=== PATIENT | female | born 1975 | race Two or more races ===

== ENCOUNTER 2024-02-22 13:29 | Outpatient (AMB) | payer MEDICAID, SELFPAY ==
[2024-02-22 13:41] VITALS: BP 126/81; PULSE 82; RESP 18; TEMP 36.8; O2SAT 98; BMI 25.8
--- NOTE | 2024-02-22 13:41 | PD.ORTHCLVIS ---
Vital signs 02/22/24 13:41 Height 1.65 m Height Method Measured Weight 70.364 kg Weight Measurement Method Standing Scale BMI 25.8 BP 126/81 Blood Pressure Source Automatic Cuff Blood Pressure Location Left Upper Arm Position Sitting Respiration 18 Pulse 82 Pulse Source Monitor Temp 98.2 F Temp Source Temporal Artery Scan Pulse Oximetry (%) 98 Oxygen Delivery Method Room Air Med/Allergies Allergies & Medications Allergies No Known Allergies Allergy (Verified 02/22/24 13:42) Medication Reconciliation hydrochlorothiazide 12.5 mg tablet 12.5 mg PO QAM 11/29/20 [History Confirmed 02/22/24] lisinopril 10 mg tablet 10 mg PO QDAY 11/29/20 [History Confirmed 02/22/24] metformin 1,000 mg tablet 1,000 mg PO BID 11/29/20 [History Confirmed 02/22/24] semaglutide 1 mg/dose (2 mg/1.5 mL) subcutaneous pen injector (Ozempic) 1 mg subcut QWEEK 11/09/22 [History Confirmed 02/22/24] meloxicam 7.5 mg tablet 7.5 mg PO QDAY #45 tabs 07/06/23 [Rx Confirmed 02/22/24] Exam Exam Patient is in no acute distress and is cooperative with the examination today. Patient has a normal mood and affect. Breathing is nonlabored. In no respiratory distress. Bilateral extremities were evaluated and demonstrates sensation intact to light touch. Palpable pedal pulses are present. No significant edema is present. Right knee incisions clean dry and intact. There is greater than 10 mm of varus valgus laxity in the medial lateral plane. The knee feels relatively stable to flexion and AP force. Range of motion 0 to 100 degrees Left knee is tender to palpation medially and laterally. Knee feels stable varus valgus stress with AP translation. Range of motion 0 to 10 degrees I was able to review nonweightbearing x-rays from last month. This demonstrates medial joint space narrowing. These are nonweightbearing films Weightbearing films demonstrate mild arthritis of the left knee. There is an asymmetry on the right knee joint space. Assessment and Plan Problem List (1) Status post total right knee replacement: Status: Acute Plan: Patient is a pleasant 48-year-old female with Unstable right total knee replacement. Is unstable in both the varus valgus as well as AP translation. We will discuss revision knee arthroplasty. We can possibly try to upsize the poly to a medial congruent poly but there is a good chance that we will rneed to revise both components. We discussed the risk of benefits of surgery including infection, mechanical loosening, damage to nerves and vessels, fracture, and Medical complications from surgery in general. We will plan for revision total knee replacement with a upsize liner as PNA but the backup plan would be to revise both components (2) Arthritis of left knee: Status: Acute Office Procedures GNS Level of Care Nursing/Assessment Patient Status: Established Patient Nursing Assessment/Reassesment: Medication Reconciliation, Update PMH in EMR and Vital Signs Coordination of Care: Complex Care and Chronic Disease 1-5, Consent,records obtained, informed consent, Education Simp Pt/Fam, Lab and Imaging orders and Staff clarify orders Established Patient Charge Established Patient Point Assignment: 100 Established Patient Point Charge: EP Level 3 (80-115) MA Intake Visit Data Collection New Patient or Established: Established Patient (seen at [facility] within 3 years) Seen by Clinical Staff ONLY (RN/MA): No Director Of Mobile Marketing Required: Yes PCP or OBGYN visit in last 3 months: Yes Hx Now: No Do You Feel Safe at Home: Yes Authorities Contacted: N/A Questionairres Past Medical History Past Medical History Have you ever been diagnosed with any of the following: Neurological Problems Seizures: No Cardiology Problems Congestive Heart Failure: No Edema: No Cellulitis: No Hypertension: Yes Varicose Veins: No Respiratory Problems Chronic Obstructive Pulmonary Disease (COPD): No Tuberculosis: No Sleep Apnea: No Smoking: No Smoking Exposure: No Stomache/Intestinal Problems Hepatitis: No Obesity: Yes Genital/Urinary Problems Renal Disease: No Reproductive Problems Previous Pregnancies: Yes (X4) Musculoskeletal Problems Arthritis: No Endocrine Problems Diabetes Mellitus Type 1: No Diabetes Mellitus Type 2: Yes Other Problems Hospitalization: Yes (surgery) Shingles: No Falls: No Blood Transfusions: No Blood Transfusion Reaction: No Anesthesia Reactions: No Chemotherapy: No Radiation Therapy: No MRSA: No Chicken Pox: Yes Measles: No Mumps: Yes Cancer: No Surgical History Pacemaker: No Subjective Immunization / Flu Flu Vaccine in the Last 12 Months: No Flu Vaccine Exclusion Criteria: Refused by Patient History of Present Illness Chief complaint: right knee pain Abril is a pleasant 48-year-old female who has significant bilateral knee pain. She had a history of a right total knee replacement 2 years ago. She still has persistent pain since then. She reports that her knee still feels like it is unstable and gives out on the right. She also has significant left knee pain has been ongoing for 2 years. She Has not had any injections but she has triedf diclofenac. She reports the pain is affecting her quality life and happiness. She has significant instability On the right knee and it is affecting her quality life and happiness Pain Pain level (0-10): 0 Review of Systems Review of Systems: All systems negative unless otherwise noted in HPI.
== END 2024-02-22 14:08 | disposition home or self-care (01) ==
LOC: HODSRG 13:29
PROVIDERS: PCP Physician Assistant; Referring Provider Physician Assistant; Supervising Provider Orthopaedic Surgery Adult Reconstructive Orthopaedic Surgery; Visit Provider Orthopaedic Surgery Adult Reconstructive Orthopaedic Surgery
DX: M17.12 Unilateral primary osteoarthritis, left knee (principal); Z96.651 Presence of right artificial knee joint; I10 Essential (primary) hypertension
CPT/HCPCS: 99213; G0463

== ENCOUNTER 2024-03-01 08:20 | Day surgery (SDC) | payer MEDICAID, SELFPAY ==
[2024-02-28 09:45] VITALS: BMI 25.7
--- NOTE | 2024-02-28 09:57 | EKG_ITS ---
[facility] Test Date: 2024-02-28 Pat Name: CELESTINO KRAUS Department: Room: - Gender: Female Belt Changer: RTSJC : 1975 Requested By: Livan Leavitt Order Number: [id number] Reading MD: Livan Leavitt Measurements Intervals Sidney Rate: 78 P: 35 MI: 158 QRS: 57 QRSD: 78 T: 13 QT: 370 QTc: 422 Interpretive Statements SINUS RHYTHM POSSIBLE LEFT ATRIAL ENLARGEMENT NONSPECIFIC T-WAVE ABNORMALITY Compared to ECG 11/09/2022 09:54:07 T-wave abnormality now present /store/S0/[id number]/[id number].pdf
[2024-02-28 11:31] LABS: Basophils # (Auto) 0.1 Thou/mm3 (0.0-0.2); Basophils % (Auto) 1 % (0-2.5); Eosinophils # (Auto) 0.4 Thou/mm3 (0.0-0.5); Eosinophils % (Auto) 5 % (0-10); Hematocrit 38.2 % (36.0-46.0); Hemoglobin 12.9 g/dL (12.0-16.0); Immature Granulocytes % (Auto) 0 % (0-0); Immature Granulocytes Auto 0.02 Thou/mm3 (0.00-0.00); Lymphocytes # (Auto) 3.5 Thou/mm3 (1.0-4.8); Lymphocytes % (Auto) 43 % (10-50); Mean Corpuscular HGB Conc 33.8 g/dl (31.0-37.0); Mean Corpuscular Hemoglobin 29.2 pg (25.0-35.0); Mean Corpuscular Volume 86 fL (80-100); Monocytes # (Auto) 0.6 Thou/mm3 (0.0-0.8); Monocytes % (Auto) 8 % (0-12); Neutrophils # (Auto) 3.5 Thou/mm3 (1.8-7.7); Neutrophils % (Auto) 43 % (37-80); Nucleated Red Blood Cell % 0 /100 WBC (0); Platelet Count 392 Thou/mm3 (140-440); RDW Standard Deviation 41.6 fL (36.4-46.3); Red Blood Count 4.42 Miln/mm3 (4.00-5.20); White Blood Count 8.1 Thou/mm3 (3.6-11.0)
[2024-02-28 11:45] LABS: INR 0.9 (0.9-1.3); Partial Thromboplastin Time 28.1 Seconds (22.0-36.0); Prothrombin Time 10.4 Seconds (9.0-12.2)
[2024-02-28 11:47] LABS: HCG Qualitative,Urine Negative
[2024-02-28 11:53] LABS: Alanine Aminotransferase 16 U/L (10-49); Albumin, Serum 4.9 gm/dL (3.5-5.0); Albumin/Globulin Ratio 1.9 (1.2-2.2); Alkaline Phosphatase 85 U/L (46-116); Anion Gap 11 (7-16); Aspartate Amino Transferase 18 U/L (0-34); BUN/Creatinine Ratio 27 Ratio (12-20); Bilirubin,Total 0.4 mg/dL (0.3-1.2); Blood Urea Nitrogen 19 mg/dL (9-23); Calcium 9.6 mg/dL (8.3-10.6); Calcium (Corrected) 9.6 mg/dL (8.5-10.1); Carbon Dioxide 25.5 mMol/L (20.0-31.0); Chloride 102 mMol/L (98-107); Creatinine (Component) 0.7 mg/dL (0.6-1.3); Estimated Creatinine Clearance 96.5 mL/min (>60); Globulin 2.6 gm/dL (2.3-3.5); Glucose 80 mg/dL (74-106); Osmolality,Calculated 276 (275-295); Potassium 3.8 mMol/L (3.4-5.1); Sodium 138 mMol/L (136-145); Total Protein 7.5 gm/dL (5.7-8.2); eGFR > 60 See Note
[2024-03-01] VITALS (19 sets, daily range): BP systolic 91–147; BP diastolic 52–96; PULSE 84–99; RESP 14–20; TEMP 36.2–36.7; O2SAT 97–100; BMI 25.5
[2024-03-01] MEDS: PREGABALIN 75 MG CAPSULE PO (09:30)
[2024-03-01] MEDS: ACETAMINOPHEN 325 MG TABLET 650 MG PO (09:30)
[2024-03-01] MEDS: MELOXICAM 7.5 MG TABLET PO (09:30)
[2024-03-01] MEDS: RINGERS LACTATED 1000 ML 1,000 ML 20 ML IV (09:33)
--- NOTE | 2024-03-01 10:31 | CHAP ---
Prayed with patient before her procedure.
--- NOTE | 2024-03-01 14:32 | SUR.PHASEI ---
1432: Pt. AAOx4, vitals stable, breathing unlabored, no complaint of pain or nausea, dressing to right knee CDI, no active bleed noted, pt. able to wiggle bilateral feet, cap refill to bilateral feet less than 3 seconds, bilateral dorsalis pedis pulses strong and regular, report received from MD Leavitt and Cabrera MAN.
--- NOTE | 2024-03-01 15:00 | XR_ITS ---
Examination: Right knee 2 views Technique one AP lateral right knee 2 views Exam date and time: March 01, 2024 1517 hours INDICATIONS: Postop knee arthroplasty today. FINDINGS: Moderate osteopenia. Total right knee arthroplasty. Satisfactory alignment No fracture IMPRESSION: Total right knee arthroplasty with satisfactory alignment
--- NOTE | 2024-03-01 16:32 | SUR.PHASEII ---
1632: Pt. AAOx4, vitals stable, breathing unlabored, no complaint of pain or nausea, dressing to right knee CDI, no active bleed noted, pt. walked with PT, tolerated well, pt. tolerated sips of soda and juice well, gave discharge instructions to the pt. and her ride using obgyn hospitalist physician Sarah, both verbalized understanding and had no further quesitons. All of pt. belongings place in a bag and is given to pt. daughter. Pt. meets discharge criteria, waiting for pt. to void and then she can go home.
--- NOTE | 2024-03-01 16:37 | SUR.PHASEII ---
Addendum entered by Janett Luna RN 03/01/24 17:34: patients daughter present with patient Original Note: 1127 Report received from Ailyn MAN, patient is awake and alert, awaiting discharge, disconnected from the monitor, IV discontinued, vital signs stable, denies pain, dressing intact; no bleeding noted, unable to urinate, patient had spinal anesthesia and must urinate prior to discharge, will assume care over patient
--- NOTE | 2024-03-01 16:38 | SUR.PHASEII ---
report given to Janett Acevedo RN to resume care, pt. currently in restroom trying to void.
--- NOTE | 2024-03-01 17:29 | SUR.PHASEII ---
patient ate 50% of dinner tray, drinking fluids continues to be unable to urinate
--- NOTE | 2024-03-01 18:09 | SUR.PHASEII ---
patient attempted to void in the restroom, unable to, will continue to have patient drink fluids
--- NOTE | 2024-03-01 19:00 | SUR.PHASEII ---
patient eating a pudding
--- NOTE | 2024-03-01 19:15 | SUR.PHASEI ---
1910 Dr. Ríos notified regarding patient still in recovery unable to void, no bladder pain at the moment however patient shared she having knee pain, telephone orders received from Tylenol 1000mg oral and Oxycodone IR 5mg oral, will place orders in EMR and administer per MD order
[2024-03-01] MEDS: ACETAMINOPHEN 500 MG TABLET 1000 MG PO (19:20)
[2024-03-01] MEDS: oxyCODONE HCL 5 MG IR TAB PO (19:21)
--- NOTE | 2024-03-01 19:30 | SUR.PHASEII ---
1930 patient voided in the restroom will proceed with discharge
--- NOTE | 2024-03-01 19:37 | SUR.PHASEII ---
1937 Patient meets discharge criteria from recovery, awake and alert, breathing unlabored, vital signs stable, patient given pain pill prior to discharge, denies nausea, information about medication given to patient and her daughter, discharge instructions given by previous nurse caring for patient, patient given all her belongings prior to discharge, transported via wheelchair and left in a private vehicle.
--- NOTE | 2024-03-07 13:31 | ESPR_ITS ---
Documentation for date of: 03/07/24 POST ANESTHESIA NOTE: Patient had spinal anesthesia and MAC for R knee surgery on 03/01/24. I just called and spoke with her on the phone via steam and gas turbines assembler and she denied any problems from anesthesia. Livan Leavitt MD Anesthesia Progress Note Progress Note Most recent Vital Signs: Last Vital Signs Temp 98.0 F 03/01/24 19:20 Pulse 93 03/01/24 19:15 Resp 18 03/01/24 19:15 BP 134/87 H 03/01/24 19:15 Pulse Ox 98 03/01/24 19:15
--- NOTE | 2024-03-14 14:22 | ESOP_ITS ---
Date of Procedure 03/01/24 Pre Op Diagnosis right knee instability Post Op Diagnosis Right knee instability Procedure Upsizing liner for stability Findings AP and medial lateral instability Procedure Description Indications Patient is a 48-year-old female with a total knee replacement 1 year ago. It was complicated by instability and she has been unhappy with how it gives out. She has been having pain to the fact she does not trust her knee. We thus discussed revision knee replacement is reasonable option. Surgery in detail The patient was brought to the operating room. A surgical timeout was performed to verify that the correct side was being operated on. The prior incision was used. The prior incision was quite large so we will use part of the incision. The knee was exposed and we sent samples for culture. It was clear that there was gross instability in the knee in the Medial lateral plane And AP plane. We remove the existing Rushing and trialed for different trials. We tried upsizing to a medial congruent poly and we found that the knee Was both balanced in flexion and extension in both AP and medial lateral planes. We then irrigated the knee and inserted the final medial compartment poly. The incision was then closed in a layered fashion. The usual sterile dressing was applied Anesthesia GETA Implants Marcelina persona medial congruent poly Pathology / specimen None Pathology comment: None Estimated Blood Loss 50 Condition Stable Disposition same day Surgeon Sourav Ríos MD Surgical Staff Operation Date: 03/01/24 13:00 Case Staff Anesthesiologist: Livan Leavitt RNnarrow fabric loom fixer: Holli Sidhu
== END 2024-03-01 19:37 | disposition home or self-care (01) ==
PROVIDERS: Anesthesiology; PCP Physician Assistant; Referring Provider Orthopaedic Surgery Adult Reconstructive Orthopaedic Surgery; Visit Provider Orthopaedic Surgery Adult Reconstructive Orthopaedic Surgery
PROC: (CPT 27487; principal; 2024-03-01 12:45)
DX: M25.361 Other instability, right knee (principal); M23.51 Chronic instability of knee, right knee; Z01.810 Encounter for preprocedural cardiovascular examination; E11.9 Type 2 diabetes mellitus without complications; I10 Essential (primary) hypertension
CPT/HCPCS: 27487; 36415; 73560; 80053; 81025; 85025; 85610; 85730; 87070; 87075; 87205; 93005; 97162; A4217; C1776; J0171; J0690; J1100; J1885; J2250; J2704; J2795; J3010; J3490; J7030; J7120; A4648; A4649; A9270

== ENCOUNTER 2024-03-17 09:03 | Outpatient (AMB) | payer MEDICAID, SELFPAY ==
[2024-03-17 09:30] VITALS: BP 121/82; PULSE 89; RESP 19; TEMP 36.3; O2SAT 98; BMI 25.7
--- NOTE | 2024-03-17 09:30 | ORTHONT_ITS ---
Vital signs 03/17/24 09:30 Height 1.65 m Height Method Stated Weight 69.995 kg Weight Measurement Method Standing Scale BMI 25.7 BP 121/82 Blood Pressure Source Automatic Cuff Blood Pressure Location Left Upper Arm Position Sitting Respiration 19 Pulse 89 Pulse Source Monitor Temp 97.4 F Temp Source Temporal Artery Scan Pulse Oximetry (%) 98 Oxygen Delivery Method Room Air Med/Allergies Allergies & Medications Allergies No Known Allergies Allergy (Verified 03/17/24 09:31) Medication Reconciliation hydrochlorothiazide 12.5 mg tablet 12.5 mg PO QAM 11/29/20 [History Confirmed 03/17/24] lisinopril 10 mg tablet 10 mg PO QDAY 11/29/20 [History Confirmed 03/17/24] metformin 1,000 mg tablet 1,000 mg PO BID 11/29/20 [History Confirmed 03/17/24] semaglutide 1 mg/dose (2 mg/1.5 mL) subcutaneous pen injector (Ozempic) 1 mg subcut QWEEK 11/09/22 [History Confirmed 03/17/24] icosapent ethyl 1 gram capsule (Vascepa) 2 g PO BID 02/28/24 [History Confirmed 03/17/24] acetaminophen 500 mg tablet (Acetaminophen Extra Strength) 1,000 mg (2 x 500 mg) PO Q6H PRN pain #90 tabs 03/01/24 [Rx Confirmed 03/17/24] aspirin 81 mg tablet,delayed release 81 mg PO BID #60 tabs 03/01/24 [Rx Confirmed 03/17/24] doxycycline hyclate 100 mg tablet 100 mg PO BID #14 tabs 03/01/24 [Rx Confirmed 03/17/24] gabapentin 300 mg capsule 300 mg PO .qhs #30 caps 03/01/24 [Rx Confirmed 03/17/24] oxycodone 5 mg tablet 5 mg PO Q6H PRN pain #28 tabs 03/01/24 [Rx Confirmed 03/17/24] sennosides 8.6 mg-docusate sodium 50 mg tablet (Senna-S) 1 tab-cap PO QDAY #30 tabs 03/01/24 [Rx Confirmed 03/17/24] oxycodone 5 mg tablet 5 mg PO Q6H PRN pain #28 tabs 03/07/24 [Rx Confirmed 03/17/24] pantoprazole 40 mg tablet,delayed release 40 mg PO QDAY #30 tabs 03/07/24 [Rx Confirmed 03/17/24] Exam Exam Patient is in no acute distress and is cooperative with the examination today. Patient has a normal mood and affect. Breathing is nonlabored. In no respiratory distress. Bilateral extremities were evaluated and demonstrates sensation intact to light touch. Palpable pedal pulses are present. No significant edema is present. Right knee incision is clean dry and intact Assessment and Plan Problem List (1) Status post total right knee replacement: Status: Acute Plan: Patient is a pleasant 48-year-old female with Unstable right total knee replacement. She is happy with her revision for instability. She has been medically and we will start her with therapy. Will see her at 6 weeks (2) Arthritis of left knee: Status: Acute Office Procedures GNS Level of Care Nursing/Assessment Patient Status: Established Patient Nursing Assessment/Reassesment: Medication Reconciliation, Update PMH in EMR and Vital Signs Coordination of Care: Complex Care and Chronic Disease 1-5, Education Complex Pt/Fam, Consent,records obtained, informed consent, Results/Orders obtained and Staff clarify orders Established Patient Charge Established Patient Point Assignment: 95 Established Patient Point Charge: EP Level 3 (80-115) MA Intake Visit Data Collection New Patient or Established: Established Patient (seen at [facility] within 3 years) Reason for Visit:: 2 WEEK POST OP R TKA Seen by Clinical Staff ONLY (RN/MA): No Cnc Machinist Required: No PCP or OBGYN visit in last 3 months: Yes Hx Now: No Do You Feel Safe at Home: Yes Authorities Contacted: N/A Questionairres Past Medical History Past Medical History Have you ever been diagnosed with any of the following: Neurological Problems Seizures: No Cardiology Problems Hypercholesterolemia: Yes Congestive Heart Failure: No Edema: No Cellulitis: No Hypertension: Yes Varicose Veins: No Respiratory Problems Chronic Obstructive Pulmonary Disease (COPD): No Tuberculosis: No Sleep Apnea: No Smoking: No Smoking Exposure: No Stomache/Intestinal Problems Hepatitis: No Obesity: Yes Genital/Urinary Problems Renal Disease: No Reproductive Problems Previous Pregnancies: Yes (X4) Musculoskeletal Problems Arthritis: Yes Endocrine Problems Diabetes Mellitus Type 1: No Diabetes Mellitus Type 2: Yes Other Problems Hospitalization: Yes (surgery) Shingles: No Falls: No Blood Transfusions: No Blood Transfusion Reaction: No Anesthesia Reactions: No Chemotherapy: No Radiation Therapy: No MRSA: No Chicken Pox: Yes Measles: No Mumps: Yes Cancer: No Surgical History Pacemaker: No Subjective Visit Visit for: follow up visit, post op #1 (2 WEEK) and knee (RIGHT) Immunization / Flu Flu Vaccine in the Last 12 Months: No Flu Vaccine Exclusion Criteria: No Exclusion Criteria History of Present Illness Chief complaint: right knee instability Abril is a pleasant 48-year-old female who is status post a right knee revision for instability. She is very happy with her progress. He is using a walker currently. We will wean her and start her with outpatient physical therapy. She has minimal pain and is very happy Pain Pain level (0-10): 0 Associated signs & symptoms: none Ambulatory data Ambulatory device: walker Treatments Improvement with previous injections: No Improvement with PT: No Improvement with NSAIDS: no Review of Systems Review of Systems: All systems negative unless otherwise noted in HPI.
== END 2024-03-17 09:36 | disposition home or self-care (01) ==
LOC: HODSRG 09:03
PROVIDERS: PCP Physician Assistant; Referring Provider Physician Assistant; Supervising Provider Orthopaedic Surgery Adult Reconstructive Orthopaedic Surgery; Visit Provider Orthopaedic Surgery Adult Reconstructive Orthopaedic Surgery
DX: Z96.651 Presence of right artificial knee joint (principal); M17.12 Unilateral primary osteoarthritis, left knee; I10 Essential (primary) hypertension; E78.00 Pure hypercholesterolemia, unspecified; E11.9 Type 2 diabetes mellitus without complications
CPT/HCPCS: 99213; G0463

== ENCOUNTER 2024-04-13 08:41 | Outpatient (AMB) | payer MEDICAID, SELFPAY ==
[2024-04-13 09:04] VITALS: BP 127/83; PULSE 86; RESP 18; TEMP 36.2; O2SAT 99; BMI 25.5
--- NOTE | 2024-04-13 09:04 | ORTHONT_ITS ---
Vital signs 04/13/24 09:04 Height 1.65 m Height Method Stated Weight 69.655 kg Weight Measurement Method Standing Scale BMI 25.5 BP 127/83 Blood Pressure Source Automatic Cuff Blood Pressure Location Right Upper Arm Position Sitting Respiration 18 Pulse 86 Pulse Source Monitor Temp 97.2 F Temp Source Temporal Artery Scan Pulse Oximetry (%) 99 Oxygen Delivery Method Room Air Med/Allergies Allergies & Medications Allergies No Known Allergies Allergy (Verified 04/13/24 09:04) Exam Exam Patient is in no acute distress and is cooperative with the examination today. Patient has a normal mood and affect. Breathing is nonlabored. In no respiratory distress. Bilateral extremities were evaluated and demonstrates sensation intact to light touch. Palpable pedal pulses are present. No significant edema is present. Right knee incision is clean dry and intact Assessment and Plan Problem List (1) Status post total right knee replacement: Status: Acute Plan: Patient is a pleasant 48-year-old female with an Unstable right total knee replacement. She is happy with her revision for instability. We Will see her in 8 weeks. she should continue with pt (2) Arthritis of left knee: Status: Acute Office Procedures GNS Level of Care Nursing/Assessment Patient Status: Established Patient Nursing Assessment/Reassesment: Medication Reconciliation, Update PMH in EMR and Vital Signs Coordination of Care: Complex Care and Chronic Disease 1-5, Education Complex Pt/Fam, Consent,records obtained, informed consent, Results/Orders obtained and Staff clarify orders Special Needs: Language special needs Established Patient Charge Established Patient Point Assignment: 95 Established Patient Point Charge: Level 3 (80-115) MA Intake Visit Data Collection New Patient or Established: Established Patient (seen at [facility] within 3 years) Reason for Visit:: 6 WEEK FOLLOW UP Seen by Clinical Staff ONLY (RN/MA): No Verbal consent obtained for Telemed visit?: No Regional Clinical Director Required: Yes PCP or OBGYN visit in last 3 months: Yes Hx Now: No Do You Feel Safe at Home: Yes Authorities Contacted: N/A Questionairres Past Medical History Past Medical History Have you ever been diagnosed with any of the following: Neurological Problems Seizures: No Cardiology Problems Hypercholesterolemia: Yes Congestive Heart Failure: No Edema: No Cellulitis: No Hypertension: Yes Varicose Veins: No Respiratory Problems Chronic Obstructive Pulmonary Disease (COPD): No Tuberculosis: No Sleep Apnea: No Smoking: No Smoking Exposure: No Stomache/Intestinal Problems Hepatitis: No Obesity: Yes Genital/Urinary Problems Renal Disease: No Reproductive Problems Previous Pregnancies: Yes (X4) Musculoskeletal Problems Arthritis: Yes Endocrine Problems Diabetes Mellitus Type 1: No Diabetes Mellitus Type 2: Yes Other Problems Hospitalization: Yes (surgery) Shingles: No Falls: No Blood Transfusions: No Blood Transfusion Reaction: No Anesthesia Reactions: No Chemotherapy: No Radiation Therapy: No MRSA: No Chicken Pox: Yes Measles: No Mumps: Yes Cancer: No Surgical History Pacemaker: No Subjective Visit Visit for: follow up visit, post op #1 (2 WEEK) and knee (RIGHT) Immunization / Flu Flu Vaccine in the Last 12 Months: No Flu Vaccine Exclusion Criteria: No Exclusion Criteria History of Present Illness Chief complaint: right knee instability Abril is a pleasant 48-year-old female who is status post a right knee revision for instability. She is very happy with her progress. She is using no assistive device and is walking relatively pain-free Personal History Occupation: UNEMPLOYED Red flag PMH: BMI BMI Counceling provided: Yes Pain Pain level (0-10): 0 Associated signs & symptoms: none Ambulatory data Ambulatory device: walker and none Treatments Improvement with previous injections: No Improvement with PT: No Improvement with NSAIDS: no Review of Systems Review of Systems: All systems negative unless otherwise noted in HPI.
== END 2024-04-13 09:16 | disposition home or self-care (01) ==
LOC: HODSRG 08:41
PROVIDERS: PCP Physician Assistant; Referring Provider Physician Assistant; Supervising Provider Orthopaedic Surgery Adult Reconstructive Orthopaedic Surgery; Visit Provider Orthopaedic Surgery Adult Reconstructive Orthopaedic Surgery
DX: Z96.651 Presence of right artificial knee joint (principal); M17.12 Unilateral primary osteoarthritis, left knee; I10 Essential (primary) hypertension; E78.00 Pure hypercholesterolemia, unspecified; E11.9 Type 2 diabetes mellitus without complications
CPT/HCPCS: 99213; G0463

== ENCOUNTER 2024-04-18 14:31 | Outpatient (RCR) | payer MEDICAID, SELFPAY ==
--- NOTE | 2024-04-18 15:12 | PTNOTE_ITS ---
PT OP Initial Eval Patient Information Outpatient Physical Therapy Treatment Date: 04/18/24 Visit Reasons: Revision TKA Medical Diagnosis: R TKA revision. M17.12 Treatment Dx #1: Decreased R knee ROM Treatment Dx #2: R knee weakness Start of Care: 04/18/24 Date of Onset: 03/01/24 Smoking Status Smoking Status: Never smoker Initial Assessment Subjective: Pt is 48 yr old gabonese speaking female s/p R TKA in 2021 with subsequent instability and revision last month. She reports very low pain in the knee but difficulty with bending and straightening and there's weakness. She is unable to go up/down stairs. PMH: DM, HTN Pt goal: more ROM and strength of R knee in order to do stairs Objective: R knee ArOM: Flexion: 97 deg Extension: -7 deg SLR: 75 deg Gait: symmetrical Strength: Quads: 3+/5 HS: 3+/5 Assessment: Pt presents with decresad ROM and strength of R knee s/p TKA revision. Pt requires skilled therapy to meet goals and has good rehab potential. Short Term and Criminal Investigator Goals 1. Ind with HEP 2. Improved ROM to at least 105 deg flexion, full extension 3. Improved quad and HS strength to 4/5 4. Ascend/descend stairs 1 flight using R Treatment Plan 1. Manual therapy ? 2. Therex ? 3. Modalities as indicated, moist heat, ice, TENS Frequency and Duration: 2x a week for 18 visits plus evaluation Certification Dates: 04/18/24 to 07/16/24 Procedure Charges OP PT Eval Mod Complex 30 minutes: Yes
== END 2024-04-21 23:59 | disposition home or self-care (01) ==
LOC: CPTX 14:31
PROVIDERS: PCP Orthopaedic Surgery Adult Reconstructive Orthopaedic Surgery; Referring Provider Orthopaedic Surgery Adult Reconstructive Orthopaedic Surgery; Visit Provider Orthopaedic Surgery Adult Reconstructive Orthopaedic Surgery
DX: M25.561 Pain in right knee (principal); R53.1 Weakness; Z96.651 Presence of right artificial knee joint; I10 Essential (primary) hypertension; E11.9 Type 2 diabetes mellitus without complications
CPT/HCPCS: 97162

== ENCOUNTER 2024-05-03 13:00 | Outpatient (RCR) | payer MEDICAID, SELFPAY ==
--- NOTE | 2024-04-24 14:41 | PT.ODAYNRPT ---
PT Outpatient Daily Note OP Daily Note Outpatient Physical Therapy Treatment Date: 04/24/24 Visit Reasons: Revision of TKA Subjective: Same as time of evaluation Objective: See F/S for therex MT: PROM into flexion x7' Assessment: Improved PROM into knee flexion to about 110 deg with overpressure Plan: Continue per POC Length of Time (minutes) of Treatment: 30 Minutes Procedure Charges Therapeutic Exercise 30 minutes: Yes
--- NOTE | 2024-04-26 14:34 | PT.ODAYNRPT ---
PT Outpatient Daily Note OP Daily Note Outpatient Physical Therapy Treatment Date: 04/26/24 Visit Reasons: Revision of TKA Subjective: No new complaints or concerns. Objective: Please see flow sheet for ther ex list. Assessment: Minimal guarding during PROM allowing for increase ROM during MT. Plan: Continue with POC. Length of Time (minutes) of Treatment: 30 Minutes Procedure Charges Therapeutic Exercise 30 minutes: Yes
--- NOTE | 2024-05-01 16:14 | PT.ODAYNRPT ---
PT Outpatient Daily Note OP Daily Note Outpatient Physical Therapy Treatment Date: 05/01/24 Visit Reasons: Revision of TKA Subjective: Better ROM to bend the knee Objective: See F/S for therex MT: PROM into flexion x7' Assessment: Improved PROM into knee flexion to about 112 deg with overpressure Plan: Continue per POC Length of Time (minutes) of Treatment: 30 Minutes Procedure Charges Therapeutic Exercise 30 minutes: Yes
--- NOTE | 2024-05-03 13:46 | PT.ODAYNRPT ---
PT Outpatient Daily Note OP Daily Note Outpatient Physical Therapy Treatment Date: 05/03/24 Visit Reasons: Revision of TKA Subjective: Pt reports knee is doing better, has been compliant with HEP performing heel slides, HS curls heel raises and knee flexion stretch. Objective: Please see flow sheet for ther ex list. Assessment: Pt able to replicate HEP with good technique indicating compliance. Plan: Continue with POC. Length of Time (minutes) of Treatment: 30 Minutes Procedure Charges Therapeutic Exercise 30 minutes: Yes
== END 2024-05-22 23:59 | disposition home or self-care (01) ==
LOC: CPTX 13:00
PROVIDERS: PCP Orthopaedic Surgery Adult Reconstructive Orthopaedic Surgery; Referring Provider Orthopaedic Surgery Adult Reconstructive Orthopaedic Surgery; Visit Provider Orthopaedic Surgery Adult Reconstructive Orthopaedic Surgery
DX: M25.561 Pain in right knee (principal); R53.1 Weakness; M25.361 Other instability, right knee; Z96.651 Presence of right artificial knee joint; M17.12 Unilateral primary osteoarthritis, left knee; I10 Essential (primary) hypertension; E11.9 Type 2 diabetes mellitus without complications
CPT/HCPCS: 97110

== ENCOUNTER 2024-07-12 15:00 | Outpatient (RCR) | payer MEDICAID, SELFPAY ==
--- NOTE | 2024-06-22 15:30 | PT.ODAYNRPT ---
PT Outpatient Daily Note OP Daily Note Outpatient Physical Therapy Treatment Date: 06/22/24 Visit Reasons: Revision TKA Subjective: Pt c/o knee feeling stiff to bend. Objective: Please see flow sheet for ther ex list. Assessment: Pt instructed on prone knee flexion exercise, pt encouraged to perform for HEP pt agreed. Plan: Continue with POC. Length of Time (minutes) of Treatment: 30 Minutes Procedure Charges Therapeutic Exercise 30 minutes: Yes
--- NOTE | 2024-07-05 15:34 | PT.ODAYNRPT ---
PT Outpatient Daily Note OP Daily Note Outpatient Physical Therapy Treatment Date: 07/05/24 Visit Reasons: Revision TKA Subjective: Pt reports knee is doing better. Objective: Please see flow sheet for ther ex list. Assessment: Progressing interventions per post op protocol. Plan: Continue with POC. Length of Time (minutes) of Treatment: 30 Minutes Procedure Charges Therapeutic Exercise 30 minutes: Yes
--- NOTE | 2024-07-12 15:54 | PT.ODS1RPT ---
PT OP Progress/Discharge Note Date of Service: 07/12/24 Progress Note/DC Note Progress Note/Discharge Note: Progress Note Patient Information Visit Reasons: Revision TKA Service Continue Service or Discharge: Continue Service Status Subjective: Went to work last week in the [place] and feels more pain in the knee and points to the distal quads Objective: See F/S for therex R knee AROM: PROM: Flexion: 105 deg 110 deg Extension: full Strength: Quads: 4-/5 HS: 4-/5 Assessment: Pt has attended 09/08 visits with slow progress with therapy goals. Pt has improved ROM into flexion to meet that goal. Strength has improved but is shy of the goal of 4/5. Pt is having pain with stairs and would benefit from continued therapy to meet that goal. Plan: The POC expires 07/16/24 and we need provider's signature to continue with visits x11 to complete the 18. Procedure Charges OP PT Eval Mod Complex 30 minutes: Yes
== END 2024-07-22 23:59 | disposition home or self-care (01) ==
LOC: CPTX 15:00
PROVIDERS: PCP Orthopaedic Surgery Adult Reconstructive Orthopaedic Surgery; Referring Provider Orthopaedic Surgery Adult Reconstructive Orthopaedic Surgery; Visit Provider Orthopaedic Surgery Adult Reconstructive Orthopaedic Surgery
DX: M25.561 Pain in right knee (principal); Z96.651 Presence of right artificial knee joint; E11.9 Type 2 diabetes mellitus without complications; I10 Essential (primary) hypertension; M17.12 Unilateral primary osteoarthritis, left knee
CPT/HCPCS: 97110; 97162

== ENCOUNTER 2024-07-18 13:35 | Outpatient (AMB) | payer MEDICAID, SELFPAY ==
[2024-07-18 13:54] VITALS: BP 120/79; PULSE 85; RESP 18; TEMP 36.6; O2SAT 97; BMI 26.0
--- NOTE | 2024-07-18 13:54 | ORTHONT_ITS ---
Vital signs 07/18/24 13:54 Height 1.65 m Height Method Stated Weight 70.902 kg Weight Measurement Method Standing Scale BMI 26.0 BP 120/79 Blood Pressure Source Automatic Cuff Blood Pressure Location Right Upper Arm Position Sitting Respiration 18 Pulse 85 Pulse Source Monitor Temp 97.8 F Temp Source Temporal Artery Scan Pulse Oximetry (%) 97 Oxygen Delivery Method Room Air Med/Allergies Allergies & Medications Allergies No Known Allergies Allergy (Verified 07/18/24 13:55) Medication Reconciliation hydrochlorothiazide 12.5 mg tablet 12.5 mg PO QAM 11/29/20 [History Confirmed 07/18/24] lisinopril 10 mg tablet 10 mg PO QDAY 11/29/20 [History Confirmed 07/18/24] metformin 1,000 mg tablet 1,000 mg PO BID 11/29/20 [History Confirmed 07/18/24] semaglutide 1 mg/dose (2 mg/1.5 mL) subcutaneous pen injector (Ozempic) 1 mg subcut QWEEK 11/09/22 [History Confirmed 07/18/24] icosapent ethyl 1 gram capsule (Vascepa) 2 g PO BID 02/28/24 [History Confirmed 07/18/24] acetaminophen 500 mg tablet (Acetaminophen Extra Strength) 1,000 mg (2 x 500 mg) PO Q6H PRN pain #90 tabs 03/01/24 [Rx Confirmed 07/18/24] aspirin 81 mg tablet,delayed release 81 mg PO BID #60 tabs 03/01/24 [Rx Confirmed 07/18/24] doxycycline hyclate 100 mg tablet 100 mg PO BID #14 tabs 03/01/24 [Rx Confirmed 07/18/24] gabapentin 300 mg capsule 300 mg PO .qhs #30 caps 03/01/24 [Rx Confirmed 07/18/24] oxycodone 5 mg tablet 5 mg PO Q6H PRN pain #28 tabs 03/01/24 [Rx Confirmed 07/18/24] sennosides 8.6 mg-docusate sodium 50 mg tablet (Senna-S) 1 tab-cap PO QDAY #30 tabs 03/01/24 [Rx Confirmed 07/18/24] oxycodone 5 mg tablet 5 mg PO Q6H PRN pain #28 tabs 03/07/24 [Rx Confirmed 07/18/24] pantoprazole 40 mg tablet,delayed release 40 mg PO QDAY #30 tabs 03/07/24 [Rx Confirmed 07/18/24] Exam Exam Patient is in no acute distress and is cooperative with the examination today. Patient has a normal mood and affect. Breathing is nonlabored. In no respiratory distress. Bilateral extremities were evaluated and demonstrates sensation intact to light touch. Palpable pedal pulses are present. No significant edema is present. Right knee incision is clean dry and intact Assessment and Plan Problem List (1) Status post total right knee replacement: Status: Acute Plan: Patient is a pleasant 49-year-old female with an Unstable right total knee replacement. She is happy with her revision for instability. She is happy with her progress. We will get new xrays. (2) Arthritis of left knee: Status: Acute Office Procedures GNS Level of Care Nursing/Assessment Patient Status: Established Patient Nursing Assessment/Reassesment: Medication Reconciliation, Update PMH in EMR and Vital Signs Coordination of Care: Complex Care and Chronic Disease 1-5, Education Complex Pt/Fam, Consent,records obtained, informed consent, Results/Orders obtained and Staff clarify orders Established Patient Charge Established Patient Point Assignment: 95 Established Patient Point Charge: EP Level 3 (80-115) MA Intake Visit Data Collection New Patient or Established: Established Patient (seen at [facility] within 3 years) Reason for Visit:: 6 WEEK FOLLOW UP Seen by Clinical Staff ONLY (RN/MA): No Verbal consent obtained for Telemed visit?: No Etiquette Teacher Required: Yes PCP or OBGYN visit in last 3 months: Yes Hx Now: No Do You Feel Safe at Home: Yes Authorities Contacted: N/A Questionairres Past Medical History Past Medical History Have you ever been diagnosed with any of the following: Neurological Problems Seizures: No Cardiology Problems Hypercholesterolemia: Yes Congestive Heart Failure: No Edema: No Cellulitis: No Hypertension: Yes Varicose Veins: No Respiratory Problems Chronic Obstructive Pulmonary Disease (COPD): No Tuberculosis: No Sleep Apnea: No Smoking: No Smoking Exposure: No Stomache/Intestinal Problems Hepatitis: No Obesity: Yes Genital/Urinary Problems Renal Disease: No Reproductive Problems Previous Pregnancies: Yes (X4) Musculoskeletal Problems Arthritis: Yes Endocrine Problems Diabetes Mellitus Type 1: No Diabetes Mellitus Type 2: Yes Other Problems Hospitalization: Yes (surgery) Shingles: No Falls: No Blood Transfusions: No Blood Transfusion Reaction: No Anesthesia Reactions: No Chemotherapy: No Radiation Therapy: No MRSA: No Chicken Pox: Yes Measles: No Mumps: Yes Cancer: No Surgical History Pacemaker: No Subjective Visit Visit for: follow up visit, post op #1 (2 WEEK) and knee (RIGHT) Immunization / Flu Flu Vaccine in the Last 12 Months: No Flu Vaccine Exclusion Criteria: No Exclusion Criteria and Already Received History of Present Illness Chief complaint: right knee instability Abril is a pleasant 48-year-old female who is status post a right knee revision for instability. She is very happy with her progress. She is using no assistive device and is walking relatively pain-free. She is now 4 months from surgery Personal History Occupation: UNEMPLOYED Red flag PMH: BMI BMI Counceling provided: Yes Pain Pain level (0-10): 4 Pain duration: COMES AND GOES Pain location: anterior Pain quality: burning, shocking and electric Associated signs & symptoms: none Ambulatory data Ambulatory device: walker and none Treatments Improvement with previous injections: No Improvement with PT: No Improvement with NSAIDS: no Review of Systems Review of Systems: All systems negative unless otherwise noted in HPI.
== END 2024-07-18 14:06 | disposition home or self-care (01) ==
LOC: HODSRG 13:35
PROVIDERS: Supervising Provider Orthopaedic Surgery Adult Reconstructive Orthopaedic Surgery; Visit Provider Orthopaedic Surgery Adult Reconstructive Orthopaedic Surgery
DX: Z96.651 Presence of right artificial knee joint (principal); M17.12 Unilateral primary osteoarthritis, left knee; I10 Essential (primary) hypertension; E78.00 Pure hypercholesterolemia, unspecified; E11.9 Type 2 diabetes mellitus without complications
CPT/HCPCS: 99213; G0463

== ENCOUNTER 2024-08-15 16:16 | Outpatient (RCR) | payer MEDICAID, SELFPAY ==
--- NOTE | 2024-08-15 18:08 | PT.ODAYNRPT ---
PT Outpatient Daily Note OP Daily Note Outpatient Physical Therapy Treatment Date: 08/15/24 Visit Reasons: Revision TKA Subjective: Better ROM to bend the knee Objective: See F/S for therex Assessment: Good strength of R knee with squatting and step ups. Plan: Continue per POC Length of Time (minutes) of Treatment: 30 Minutes Procedure Charges Therapeutic Exercise 30 minutes: Yes
== END 2024-08-21 23:59 | disposition home or self-care (01) ==
LOC: CPTX 16:16
PROVIDERS: PCP Orthopaedic Surgery Adult Reconstructive Orthopaedic Surgery; Referring Provider Orthopaedic Surgery Adult Reconstructive Orthopaedic Surgery; Visit Provider Orthopaedic Surgery Adult Reconstructive Orthopaedic Surgery
DX: M25.561 Pain in right knee (principal); M25.361 Other instability, right knee; R53.1 Weakness; Z96.651 Presence of right artificial knee joint; M17.12 Unilateral primary osteoarthritis, left knee; I10 Essential (primary) hypertension; E11.9 Type 2 diabetes mellitus without complications
CPT/HCPCS: 97110

== ENCOUNTER → 2024-10-09 | Outpatient (CLI) | payer MEDICAID, SELFPAY ==
--- NOTE | 2024-10-09 14:52 | XR_ITS ---
Examination: Bilateral AP knees single view Right knee PA lateral axial 3 views TECHNIQUE: Bilateral AP knees standing single view Right knee PA standing, lateral standing, axial right knee 3 views total 4 views Date and time: October 09, 2024 1519 hours INDICATIONS: Status post right knee replacement. FINDINGS: Total right knee arthroplasty. Satisfactory alignment. No loosening of the prosthetic components. Mild narrowing medial lateral joint spaces left knee IMPRESSION: Total right knee arthroplasty with satisfactory alignment
== END | disposition home or self-care (01) ==
LOC: CDIM 14:43
PROVIDERS: PCP Physician Assistant; Referring Provider Orthopaedic Surgery Adult Reconstructive Orthopaedic Surgery; Visit Provider Orthopaedic Surgery Adult Reconstructive Orthopaedic Surgery
DX: Z96.651 Presence of right artificial knee joint (principal)
CPT/HCPCS: 73564

== ENCOUNTER 2024-10-19 13:22 | Outpatient (AMB) | payer MEDICAID, SELFPAY ==
--- NOTE | 2024-10-19 13:35 | ORTHONT_ITS ---
Vital signs 10/19/24 13:36 Height 1.65 m Height Method Measured Weight 70.987 kg Weight Measurement Method Standing Scale BMI 26.0 BP 104/71 Blood Pressure Source Automatic Cuff Blood Pressure Location Left Upper Arm Position Sitting Respiration 18 Pulse 73 Pulse Source Monitor Temp 97.4 F Temp Source Temporal Artery Scan Pulse Oximetry (%) 98 Oxygen Delivery Method Room Air Med/Allergies Allergies & Medications Allergies No Known Allergies Allergy (Verified 10/19/24 13:37) Medication Reconciliation hydrochlorothiazide 12.5 mg tablet 12.5 mg PO QAM 11/29/20 [History Confirmed 10/19/24] lisinopril 10 mg tablet 10 mg PO QDAY 11/29/20 [History Confirmed 10/19/24] metformin 1,000 mg tablet 1,000 mg PO BID 11/29/20 [History Confirmed 10/19/24] semaglutide 1 mg/dose (2 mg/1.5 mL) subcutaneous pen injector (Ozempic) 1 mg subcut QWEEK 11/09/22 [History Confirmed 10/19/24] icosapent ethyl 1 gram capsule (Vascepa) 2 g PO BID 02/28/24 [History Confirmed 10/19/24] acetaminophen 500 mg tablet (Acetaminophen Extra Strength) 1,000 mg (2 x 500 mg) PO Q6H PRN pain #90 tabs 03/01/24 [Rx Confirmed 10/19/24] aspirin 81 mg tablet,delayed release 81 mg PO BID #60 tabs 03/01/24 [Rx Confirmed 10/19/24] doxycycline hyclate 100 mg tablet 100 mg PO BID #14 tabs 03/01/24 [Rx Confirmed 10/19/24] gabapentin 300 mg capsule 300 mg PO .qhs #30 caps 03/01/24 [Rx Confirmed 10/19/24] oxycodone 5 mg tablet 5 mg PO Q6H PRN pain #28 tabs 03/01/24 [Rx Confirmed 10/19/24] sennosides 8.6 mg-docusate sodium 50 mg tablet (Senna-S) 1 tab-cap PO QDAY #30 tabs 03/01/24 [Rx Confirmed 10/19/24] oxycodone 5 mg tablet 5 mg PO Q6H PRN pain #28 tabs 03/07/24 [Rx Confirmed 10/19/24] pantoprazole 40 mg tablet,delayed release 40 mg PO QDAY #30 tabs 03/07/24 [Rx Confirmed 10/19/24] Exam Exam Patient is in no acute distress and is cooperative with the examination today. Patient has a normal mood and affect. Breathing is nonlabored. In no respiratory distress. Bilateral extremities were evaluated and demonstrates sensation intact to light touch. Palpable pedal pulses are present. No significant edema is present. Right knee incision is clean dry and intact Assessment and Plan Problem List (1) Status post total right knee replacement: Status: Acute Plan: Patient is a pleasant 49-year-old female with an Unstable right total knee replacement. She is happy with her revision for instability. She is happy with her progress. (2) Arthritis of left knee: Status: Acute Office Procedures GNS Level of Care Nursing/Assessment Patient Status: Established Patient Nursing Assessment/Reassesment: Medication Reconciliation, Orthostatic Vitals, Update PMH in EMR and Vital Signs Coordination of Care: Complex Care and Chronic Disease 1-5, Education Complex Pt/Fam, Consent,records obtained, informed consent, Results/Orders obtained and Staff clarify orders Special Needs: Language special needs Established Patient Charge Established Patient Point Assignment: 105 Established Patient Point Charge: EP Level 3 (80-115) MA Intake Visit Data Collection New Patient or Established: Established Patient (seen at [facility] within 3 years) Reason for Visit:: RIGHT TKA F/U Seen by Clinical Staff ONLY (RN/MA): No Verbal consent obtained for Telemed visit?: No Vice President Process Required: Yes PCP or OBGYN visit in last 3 months: Yes Hx Now: No Do You Feel Safe at Home: Yes Authorities Contacted: N/A Questionairres Past Medical History Past Medical History Have you ever been diagnosed with any of the following: Neurological Problems Seizures: No Cardiology Problems Hypercholesterolemia: Yes Congestive Heart Failure: No Edema: No Cellulitis: No Hypertension: Yes Varicose Veins: No Respiratory Problems Chronic Obstructive Pulmonary Disease (COPD): No Tuberculosis: No Sleep Apnea: No Smoking: No Smoking Exposure: No Stomache/Intestinal Problems Hepatitis: No Obesity: Yes Genital/Urinary Problems Renal Disease: No Reproductive Problems Previous Pregnancies: Yes (X4) Musculoskeletal Problems Arthritis: Yes Endocrine Problems Diabetes Mellitus Type 1: No Diabetes Mellitus Type 2: Yes Other Problems Hospitalization: Yes (surgery) Shingles: No Falls: No Blood Transfusions: No Blood Transfusion Reaction: No Anesthesia Reactions: No Chemotherapy: No Radiation Therapy: No MRSA: No Chicken Pox: Yes Measles: No Mumps: Yes Cancer: No Surgical History Pacemaker: No Subjective Visit Visit for: follow up visit and knee Immunization / Flu Flu Vaccine in the Last 12 Months: No Flu Vaccine Exclusion Criteria: No Exclusion Criteria and Already Received History of Present Illness Chief complaint: RIGHT TKA F/U Abril is a pleasant 48-year-old female who is status post a right knee revision for instability. She is very happy with her progress. She is using no assistive device and is walking relatively pain-free. She is now 8 months from surgery Personal History Occupation: UNEMPLOYED Red flag PMH: BMI BMI Counceling provided: Yes Pain Pain level (0-10): 0 Pain duration: COMES AND GOES Pain location: anterior Pain quality: burning, shocking and electric Associated signs & symptoms: none Ambulatory data Ambulatory device: none Treatments Improvement with previous injections: No Improvement with PT: No Improvement with NSAIDS: no Review of Systems Review of Systems: All systems negative unless otherwise noted in HPI.
[2024-10-19 13:36] VITALS: BP 104/71; PULSE 73; RESP 18; TEMP 36.3; O2SAT 98; BMI 26.0
== END 2024-10-19 13:52 | disposition home or self-care (01) ==
PROVIDERS: Supervising Provider Orthopaedic Surgery Adult Reconstructive Orthopaedic Surgery; Visit Provider Orthopaedic Surgery Adult Reconstructive Orthopaedic Surgery
DX: Z96.651 Presence of right artificial knee joint (principal); M17.12 Unilateral primary osteoarthritis, left knee; I10 Essential (primary) hypertension; E78.00 Pure hypercholesterolemia, unspecified; E11.9 Type 2 diabetes mellitus without complications; E66.9 Obesity, unspecified; Z71.3 Dietary counseling and surveillance; Z68.26 Body mass index [BMI] 26.0-26.9, adult
CPT/HCPCS: 99213; G0463

== ENCOUNTER → 2025-01-26 | Outpatient (CLI) | payer MEDICAID, SELFPAY ==
--- NOTE | 2025-01-26 08:15 | XR_ITS ---
Examination: Screening digital mammography, bilateral Computer aided detection 3-D breast Tomosynthesis, bilateral Date and time of exam: January 26, 2025, 0754, compared to mammograms dating to July 26, 2017 Indication: Screening Technique: Nonmagnified MLO, CC views of the breasts to been obtained, reconstructed from 3-D Tomosynthesis images. R2 computer aided detection program utilized for evaluation of suspicious masses and/or abnormal calcifications. 3-D Tomosynthesis images obtained. Findings: Scattered areas of fibroglandular density Stable mild focal asymmetry retroareolar region left breast on the cc view Impression: BI-RADS Category 0: Incomplete: Need additional imaging evaluation Recommend follow-up left breast sonography to document glandular tissue in the retroareolar region left breast
== END | disposition home or self-care (01) ==
PROVIDERS: PCP Obstetrics & Gynecology; Referring Provider Obstetrics & Gynecology; Visit Provider Obstetrics & Gynecology
DX: Z12.31 Encounter for screening mammogram for malignant neoplasm of breast (principal); R92.8 Other abnormal and inconclusive findings on diagnostic imaging of breast
CPT/HCPCS: 77063; 77067

== ENCOUNTER → 2025-02-12 | Outpatient (CLI) | payer MEDICAID, SELFPAY ==
--- NOTE | 2025-02-12 11:21 | XR_ITS ---
Examination: Breast ultrasound, unilateral, left complete Date and time of exam: February 12, 2025, 1131 hours INDICATIONS: Mammogram January 26, 2025 scattered areas of fibroglandular density mild focal asymmetry retroareolar region left breast on the CC view, left breast pain 2 months Technique: Real-time son scale ultrasonographic imaging performed left breast including all 4 quadrants as well as nipple retroareolar and axillary region. Findings: 1:00 cyst 4 x 4 mm 10:00 cyst 4 x 3 mm No solid nodules IMPRESSION: BI-RADS Category 2: Benign findings
== END | disposition home or self-care (01) ==
LOC: CDIM 11:11
PROVIDERS: PCP Family Medicine; Referring Provider Obstetrics & Gynecology; Visit Provider Obstetrics & Gynecology
DX: R92.2 Inconclusive mammogram (principal)
CPT/HCPCS: 76641